=== PATIENT | female | born 2005 | race Caucasian/White ===

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

== ENCOUNTER 2023-07-15 17:43 | Outpatient (CLI) | payer BC, SELFPAY ==
--- NOTE | ~2023-07-15 | XR_ITS ---
EXAM: XR knee RT min 4V, XR knee LT min 4V DATE: 07/15/2023 18:03 HISTORY: M25.561 - Pain in right knee . COMPARISON: None available. FINDINGS: Normal mineralization. No fracture or dislocation. No lytic or blastic lesion. Mild bilate ral medial joint space narrowing, with suggestion of loss of the normal valgus alignment. No erosion or periosteal change. Soft tissues within normal limits. Small left knee joint fluid collection. IMPRESSION: Medial joint space narrowing in the bilateral knees, may reflect early degenerative christine e. Small left knee joint effusion. Reviewed, dictated and finalized at location K. IMPRESSION: Medial joint space narrowing in the bilateral knees, may reflect ea rly degenerative change. Small left knee joint effusion.
== END 2023-07-15 17:44 | disposition home or self-care (01) ==
LOC: ANHIMG 17:45
PROVIDERS: PCP Family Medicine; Visit Provider Physician Assistant
DX: M25.561 Pain in right knee (principal); M25.562 Pain in left knee; M25.462 Effusion, left knee
CPT/HCPCS: 73564

== ENCOUNTER 2025-02-01 09:36 | Outpatient (CLI) | payer OTHER, SELFPAY ==
--- NOTE | ~2025-02-01 | MR_ITS ---
EXAMINATION: MR knee LT wo con DATE: 02/01/2025 10:14 INDICATION: Sprain of anterior cruciate ligament. TECHNIQUE: Magnetic resonance imaging (MRI) of the left knee was performed without intravenous contrast. Sequences included axial PD-weighted FS FSE, coronal PD-weighted FSE and PD-weighted FS FSE, sagittal PD-weighted FSE, and sagittal T2-weighted FS FSE. COMPARISON: Left knee radiographs 01/16/2025 FINDINGS: Medial compartment: There is a complex tear involving anterior horn, body, and posterior horn of medial meniscus. There is shallow partial-thickness cartilage loss of tibial condyle. There is full-thickness cartilage loss of femoral condyle involving the central and posterior articular surface with mild subchondral edema-like marrow signal intensity. There are tiny osteophytes. Lateral compartment: Lateral meniscus is normal. Lateral compartment cartilage is normal. There are tiny osteophytes. Patellofemoral compartment: Patellar cartilage is normal. Trochlear cartilage is normal. Ligaments and tendons: There is a complete tear of anterior cruciate ligament. Posterior cruciate ligament is normal. Medial collateral ligament is normal. There are changes of prior sprain of lateral collateral ligament characterized by increased signal intensity proximally. There is mild patellar tendinopathy. Fluid: There is a moderate-sized knee joint effusion. IMPRESSION: 1. Severe chondrosis of medial compartment. 2. Complex tear of medial meniscus. 3. Complete tear of anterior cruciate ligament. 4. Moderate-sized knee joint effusion. Reviewed, dictated and finalized at location E.
== END 2025-02-01 09:37 | disposition home or self-care (01) ==
LOC: MICIMG 09:38
PROVIDERS: PCP Orthopaedic Surgery; Visit Provider Orthopaedic Surgery
DX: M94.262 Chondromalacia, left knee (principal); S83.512A Sprain of anterior cruciate ligament of left knee, initial encounter; S83.232A Complex tear of medial meniscus, current injury, left knee, initial encounter; X58.XXXA Exposure to other specified factors, initial encounter; M25.462 Effusion, left knee
CPT/HCPCS: 73721